=== PATIENT | female | born 1960 | race Asian ===

== ENCOUNTER 2019-06-18 11:15 | Outpatient (RCR) | payer OTHER, SELFPAY ==
--- NOTE | 2019-06-04 17:27 | PT.OIE ---
Current Diagnoses Pain in left knee (06/04/19) Difficulty in walking, not elsewhere classified (06/04/19) Abnormal posture (06/04/19) Weakness (06/04/19) Visit Care Team Role Provider Type MICHAEL Larsen Attending Provider Advanced Banquet Supervisor Primary Care Provider Referring Provider Specialty: EM Address: [address] [place] [address], [id number] Email: Physical Therapy Initial Evaluation PT-OP-A Visit Information Start: 06/03/19 15:01 Freq: Status: Active Protocol: Document 06/04/19 12:06 SP (Rec: 06/04/19 13:59 SP [email or web address]) Out-Patient Physical Therapy Visit Information Visit Information Visit Type Initial Evaluation Visit Start Time 10:37 Visit Stop Time 11:21 Total Visit Minutes 44 Visit Number 1 Number of ELECTRONIC IMAGER Visits 0 PT-OP-B Current Condition Start: 06/03/19 15:01 Freq: Status: Active Protocol: Document 06/04/19 12:06 SP (Rec: 06/04/19 13:59 SP [email or web address]) Current Condition History of Current Condition Onset Date March 2019 Current Complaints left knee pain History of Current Condition Pt, 59yo female, c/o left knee pain that has been going on for a few months however has gotten worse since March when she was walking in the snow. Pt states she did not slip but was aware of having to put more weight through her leg in order to prevent falling in the snow. She denies hearing a click/pop or experiencing any numbess/ tingling. 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 She states that she feels clicking in her left knee when she walks and at times it makes noise. Most of her pain is on the medial side and behind the knee. Pain is worse with stairs, transfers, walking, and standing. Pain decreases with tylenol/aleve, heat, and massage. Pt would like to be able to garden and complete house work without increase of symptoms. Her biggest worry is that she is feeling unsteady and feels like she has to walk slow in order to be safe. She is able to walk ~.5mi prior to feeling like her left knee will give out. PT-OP-C Subjective Start: 06/03/19 15:01 Freq: Status: Active Protocol: Document 06/04/19 12:06 SP (Rec: 06/04/19 13:59 SP [email or web address]) Patient Questionnaires Lower Extremity Functional Scale LEFS Score 74/80 LEFS Impairment 1 to 19% Impaired (Score 63-79 ) PT-OP-F Manual Assessment Start: 06/03/19 15:01 Freq: Status: Active Protocol: Document 06/04/19 12:06 SP (Rec: 06/04/19 17:11 SP [email or web address]) Manual Assessments Joint Mobility Assessment Joint Mobility Assessment L femur ER, L tib IR. R femur ER, R tib ER. PF jt - hypomobile bilaterally PT-OP-G Mobility & Gait Start: 06/03/19 15:01 Freq: Status: Active Protocol: Document 06/04/19 12:06 SP (Rec: 06/04/19 17:09 SP [email or web address]) OP Gait Assessment Comments Gait Comments Pt ambulates with decreased gait speed, mildly flexed knees, B hip ER, R lateral trunk lean, and decreased push off on L. PT-OP-K Range of Motion Start: 06/03/19 15:01 Freq: Status: Active Protocol: Document 06/04/19 12:06 SP (Rec: 06/04/19 13:59 SP [email or web address]) Knee Goniometric Range of Motion Knee Right Patient Position Supine Flexion Active (degrees) 122 Extension Active (degrees) 0 Left Patient Position Supine Flexion Active (degrees) 120 Extension Active (degrees) 0 PT-OP-L Special Tests Start: 06/03/19 15:01 Freq: Status: Active Protocol: Document 06/04/19 12:06 SP (Rec: 06/04/19 13:59 SP [email or web address]) Special Tests Knee Special Tests Varus- 0 Degrees Test Results negative Valgus- 0 Degrees Test Results negative Posterior Draw Test Results negative Kim Test Test Results negative Comments done in sitting Anterior Draw Test Results negative PT-OP-M Strength Start: 06/03/19 15:01 Freq: Status: Active Protocol: Document 06/04/19 12:06 SP (Rec: 06/04/19 13:59 SP [email or web address]) Hip Strength Hip Manual Muscle Testing Right Flexion (L2) 3+ Fair+ Extension (S1) 3+ Fair+ Abduction 4 Good External Rotation 4 Good Internal Rotation 4 Good Left Flexion (L2) 3+ Fair+ Extension (S1) 3+ Fair+ Abduction 4- Good- External Rotation 4 Good Internal Rotation 4 Good Comments mild pn left knee with ER Knee Strength Knee Manual Muscle Testing Right Flexion (S2) 4 Good Extension (L3) 4 Good Left Flexion (S2) 4 Good Extension (L3) 4 Good Comments mild pn posterior knee with flexion Ankle/Foot Strength Ankle and Foot Manual Muscle Testing Right Dorsiflexion (L4) 5 Normal Plantarflexion (S1) 4 Good Comments plantarflexion tested in sitting Left Dorsiflexion (L4) 5 Normal Plantarflexion (S1) 4 Good Comments plantarflexion tested in sitting PT-OP-Q Treatments Start: 06/03/19 15:01 Freq: Status: Active Protocol: Document 06/04/19 12:06 SP (Rec: 06/04/19 13:59 SP [email or web address]) Therapeutic Exercises Supine Exercises ham stretch Side bilateral Equipment Used towel SLR Side bilateral Reps/Minutes 15 PT-OP-T Assessment and Plan Start: 06/03/19 15:01 Freq: Status: Active Protocol: Document 06/04/19 12:06 SP (Rec: 06/04/19 13:59 SP [email or web address]) Physical Therapy Assessment Rehab Potential Rehabilitation Potential Good Evaluation Complexity Number of Personal Factors/Comorbidities 0 Number of Body Systems Impaired 4 or More Clinical Presentation at Evaluation Evolving Impairments Impairments Activity Tolerance,Balance, Functional Activities, Functional Mobility,Gait,Pain, Posture,ROM,Strength Goals Four Impairment Gait Learning Design Specialist Goal (LTG) Pt will demonstrate equal weight bearing and upright posture when ambulating. LTG Duration 8 weeks Three Impairment home exercise program Short Term Goal (STG) Pt will be independent and compliant with HEP. STG Duration 2 weeks Two Impairment Pain Learning Design Specialist Goal (LTG) Pt will have pain <1/10 when standing to be able to fulfill all work duties. LTG Duration 8 weeks One Impairment Strength Assisted Goal (LTG) Pt will have 5/5 BLE strength in order to be able to transfer without increase of symptoms. LTG Duration 8 weeks Assessment Summary Assessment Pt presents to PT with left knee pain medial/posterior > lateral. Pt ambulates with decreased gait speed, mildly flexed knees, B hip ER, and R lateral trunk lean. She also presents with poor postural alignment, decreased hip/knee strength, and hypomobile B patellofemoral jt. She would benefit from skilled PT services in order to improve impairments, be able to fulfill all work duties, and perform all ADLs without increase of symptoms. Physical Therapy Plan Frequency and Duration Frequency of Treatment 2x/Week Duration of Treatment 2 months Plan of Care Start Date 06/04/19 Plan of Care End Date 08/04/19 Therapeutic Interventions Therapeutic Interventions Aquatic Therapy,Balance Training,Gait Training,Home Exercise Program,Joint Mobilizations,Manual Therapy, Neuromuscular Re-education, Orthotic/Prosthetic Management ,Patient/Caregiver Education, Self-Care/Home Management,Soft Tissue Mobilization,Taping, Therapeutic Activities, Therapeutic Exercises Modalities Cold Pack/Ice Massage,Electric Stimulation,Hot Packs, Ultrasound Next Visit Focus/Plan Next Note Type Treatment Note Next Visit Plan Reassess femur/tibia positioning and begin manual tx, assess balance and stairs.
--- NOTE | 2019-06-04 17:27 | PT.OPPOC ---
Addendum entered and electronically signed by Jaida Root, PT 09/19/19 12:07: refax Original Note: Physical, Occupational & Speech Therapy At [facility] Current Diagnoses Pain in left knee (06/04/19) Difficulty in walking, not elsewhere classified (06/04/19) Abnormal posture (06/04/19) Weakness (06/04/19) Visit Care Team Role Provider Type MICHAEL Larsen Attending Provider Advanced Strategy Manager Primary Care Provider Referring Provider Specialty: Address: [address] [place] [address], [id number] Email: Plan Of Care PT-OP-T Assessment and Plan Start: 06/03/19 15:01 Freq: Status: Active Protocol: Document 06/04/19 12:06 SP (Rec: 06/04/19 13:59 SP [email or web address]) Physical Therapy Assessment Rehab Potential Rehabilitation Potential Good Evaluation Complexity Number of Personal Factors/Comorbidities 0 Number of Body Systems Impaired 4 or More Clinical Presentation at Evaluation Evolving Impairments Impairments Activity Tolerance,Balance, Functional Activities, Functional Mobility,Gait,Pain, Posture,ROM,Strength Goals Four Impairment Gait Warehouse Order Selector Goal (LTG) Pt will demonstrate equal weight bearing and upright posture when ambulating. LTG Duration 8 weeks Three Impairment home exercise program Short Term Goal (STG) Pt will be independent and compliant with HEP. STG Duration 2 weeks Two Impairment Pain Warehouse Order Selector Goal (LTG) Pt will have pain <1/10 when standing to be able to fulfill all work duties. LTG Duration 8 weeks One Impairment Strength Warehouse Order Selector Goal (LTG) Pt will have 5/5 BLE strength in order to be able to transfer without increase of symptoms. LTG Duration 8 weeks Assessment Summary Assessment Pt presents to PT with left knee pain medial/posterior > lateral. Pt ambulates with decreased gait speed, mildly flexed knees, B hip ER, and R lateral trunk lean. She also presents with poor postural alignment, decreased hip/knee strength, and hypomobile B patellofemoral jt. She would benefit from skilled PT services in order to improve impairments, be able to fulfill all work duties, and perform all ADLs without increase of symptoms. Physical Therapy Plan Frequency and Duration Frequency of Treatment 2x/Week Duration of Treatment 2 months Plan of Care Start Date 06/04/19 Plan of Care End Date 08/04/19 Therapeutic Interventions Therapeutic Interventions Aquatic Therapy,Balance Training,Gait Training,Home Exercise Program,Joint Mobilizations,Manual Therapy, Neuromuscular Re-education, Orthotic/Prosthetic Management ,Patient/Caregiver Education, Self-Care/Home Management,Soft Tissue Mobilization,Taping, Therapeutic Activities, Therapeutic Exercises Modalities Cold Pack/Ice Massage,Electric Stimulation,Hot Packs, Ultrasound Next Visit Focus/Plan Next Note Type Treatment Note Next Visit Plan Reassess femur/tibia positioning and begin manual tx, assess balance and stairs. Plan of Care Dates Plan of Care Start Date 06/04/19 Plan of Care End Date 08/04/19 Electronically Signed by: Jaida Root, PT 06/04/19 [id number] Please Sign and Return: I have reviewed this Plan of Care and certify that the skilled therapy services above are required to meet the patient?s needs. Physician Signature Date Printed Name and Credentials Clinical Instructor Signature Printed Name and Credentials
--- NOTE | 2019-06-06 17:41 | PT.OTN ---
Current Diagnoses Pain in left knee (06/06/19) Difficulty in walking, not elsewhere classified (06/06/19) Abnormal posture (06/06/19) Weakness (06/06/19) Physical Therapy Treatment Note PT-OP-A Visit Information Start: 06/03/19 15:01 Freq: Status: Active Protocol: Document 06/06/19 13:13 SP (Rec: 06/06/19 13:28 SP [email or web address]) Out-Patient Physical Therapy Visit Information Visit Information Visit Type Treatment Note Visit Start Time 11:17 Visit Stop Time 12:00 Total Visit Minutes 43 Visit Number 2 Number of SEO PROFESSIONAL Visits 0 PT-OP-B Current Condition Start: 06/03/19 15:01 Freq: Status: Active Protocol: Document 06/04/19 12:06 SP (Rec: 06/04/19 13:59 SP [email or web address]) Current Condition History of Current Condition Onset Date March 2019 Current Complaints left knee pain History of Current Condition Pt, 59yo female, c/o left knee pain that has been going on for a few months however has gotten worse since March when she was walking in the snow. Pt states she did not slip but was aware of having to put more weight through her leg in order to prevent falling in the snow. She denies hearing a click/pop or experiencing any numbess/ tingling. 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 She states that she feels clicking in her left knee when she walks and at times it makes noise. Most of her pain is on the medial side and behind the knee. Pain is worse with stairs, transfers, walking, and standing. Pain decreases with tylenol/aleve, heat, and massage. Pt would like to be able to garden and complete house work without increase of symptoms. Her biggest worry is that she is feeling unsteady and feels like she has to walk slow in order to be safe. She is able to walk ~.5mi prior to feeling like her left knee will give out. PT-OP-C Subjective Start: 06/03/19 15:01 Freq: Status: Active Protocol: Document 06/06/19 13:13 SP (Rec: 06/06/19 13:28 SP [email or web address]) OP-PT Subjective Patient Comments Patient Comments Pt reports she is sore today after just finishing up a 7 hour shift. She has been stretching at home and thinks it is helping loosen her muscles up. She still feels unsteady on her feet. PT-OP-F Manual Assessment Start: 06/03/19 15:01 Freq: Status: Active Protocol: Document 06/04/19 12:06 SP (Rec: 06/04/19 17:11 SP [email or web address]) Manual Assessments Joint Mobility Assessment Joint Mobility Assessment L femur ER, L tib IR. R femur ER, R tib ER. PF jt - hypomobile bilaterally PT-OP-G Mobility & Gait Start: 06/03/19 15:01 Freq: Status: Active Protocol: Document 06/04/19 12:06 SP (Rec: 06/04/19 17:09 SP [email or web address]) OP Gait Assessment Comments Gait Comments Pt ambulates with decreased gait speed, mildly flexed knees, B hip ER, R lateral trunk lean, and decreased push off on L. PT-OP-K Range of Motion Start: 06/03/19 15:01 Freq: Status: Active Protocol: Document 06/04/19 12:06 SP (Rec: 06/04/19 13:59 SP [email or web address]) Knee Goniometric Range of Motion Knee Right Patient Position Supine Flexion Active (degrees) 122 Extension Active (degrees) 0 Left Patient Position Supine Flexion Active (degrees) 120 Extension Active (degrees) 0 PT-OP-L Special Tests Start: 06/03/19 15:01 Freq: Status: Active Protocol: Document 06/04/19 12:06 SP (Rec: 06/04/19 13:59 SP [email or web address]) Special Tests Knee Special Tests Varus- 0 Degrees Test Results negative Valgus- 0 Degrees Test Results negative Posterior Draw Test Results negative Kim Test Test Results negative Comments done in sitting Anterior Draw Test Results negative PT-OP-M Strength Start: 06/03/19 15:01 Freq: Status: Active Protocol: Document 06/04/19 12:06 SP (Rec: 06/04/19 13:59 SP [email or web address]) Hip Strength Hip Manual Muscle Testing Right Flexion (L2) 3+ Fair+ Extension (S1) 3+ Fair+ Abduction 4 Good External Rotation 4 Good Internal Rotation 4 Good Left Flexion (L2) 3+ Fair+ Extension (S1) 3+ Fair+ Abduction 4- Good- External Rotation 4 Good Internal Rotation 4 Good Comments mild pn left knee with ER Knee Strength Knee Manual Muscle Testing Right Flexion (S2) 4 Good Extension (L3) 4 Good Left Flexion (S2) 4 Good Extension (L3) 4 Good Comments mild pn posterior knee with flexion Ankle/Foot Strength Ankle and Foot Manual Muscle Testing Right Dorsiflexion (L4) 5 Normal Plantarflexion (S1) 4 Good Comments plantarflexion tested in sitting Left Dorsiflexion (L4) 5 Normal Plantarflexion (S1) 4 Good Comments plantarflexion tested in sitting PT-OP-Q Treatments Start: 06/03/19 15:01 Freq: Status: Active Protocol: Document 06/06/19 13:13 SP (Rec: 06/06/19 13:28 SP [email or web address]) Cardio Equipment Recumbent Stepper (Sci-Fit) Duration (Minutes) 6 Seat Position 4 Therapeutic Exercises Standing Exercises side steps Side bilateral Reps/Minutes 15ftx4 Manual Therapy Treatment Soft Tissue Mobilization L ham, quad, It band Body Location L Mobilization Type Rolling,Strumming,Sustained Pressure Intensity/Depth Moderate Body Position Supine Comments with quad sets Joint Mobilizations PF jt Joint L PF Direction all directions Grade III Body Position Supine L tibiofemoral jt Joint L tibfem Direction distraction Grade IV Body Position Sitting Reps/Duration 30sx4 Comments Pt at edge of mat table with feet off of floor. Apply distraction force at tibfem jt and bring pt to end range ext . Hold at end 30sx4. Manual Techniques ham stretch Body Location L Body Position Supine Neuro Re-Education Treatment Balance Activities 1 Comments 1. feet apart 2. feet together 3. tandem all with head turns, eyes closed PT-OP-T Assessment and Plan Start: 06/03/19 15:01 Freq: Status: Active Protocol: Document 06/06/19 13:13 SP (Rec: 06/06/19 13:28 SP [email or web address]) Physical Therapy Assessment Goals Four Impairment Gait Air Sampling And Monitoring Goal (LTG) Pt will demonstrate equal weight bearing and upright posture when ambulating. LTG Duration 8 weeks Three Impairment home exercise program Short Term Goal (STG) Pt will be independent and compliant with HEP. STG Duration 2 weeks Two Impairment Pain Air Sampling And Monitoring Goal (LTG) Pt will have pain <1/10 when standing to be able to fulfill all work duties. LTG Duration 8 weeks One Impairment Strength Residential Goal (LTG) Pt will have 5/5 BLE strength in order to be able to transfer without increase of symptoms. LTG Duration 8 weeks Assessment Summary Assessment Pt was able to tolerate strengthening and balance exercises well today. Prior to manual, pt ambulated with decreased gait speed and flexed L knee. Following manual, gait speed increased, pt was able to reach full ext, and had less pain. Physical Therapy Plan Frequency and Duration Frequency of Treatment 2x/Week Duration of Treatment 2 months Plan of Care Start Date 06/04/19 Plan of Care End Date 08/04/19 Next Visit Focus/Plan Next Note Type Treatment Note Next Visit Plan Continue with manual to increase jt space at L knee, stretch hamstring, review HEP.
--- NOTE | 2019-06-11 17:58 | PT.OTN ---
Current Diagnoses Pain in left knee (06/11/19) Difficulty in walking, not elsewhere classified (06/11/19) Abnormal posture (06/11/19) Weakness (06/11/19) Physical Therapy Treatment Note PT-OP-A Visit Information Start: 06/03/19 15:01 Freq: Status: Active Protocol: Document 06/11/19 17:00 SP (Rec: 06/11/19 17:15 SP [email or web address]) Out-Patient Physical Therapy Visit Information Visit Information Visit Type Treatment Note Visit Start Time 14:35 Visit Stop Time 15:20 Total Visit Minutes 45 Visit Number 3 Number of GRINDER GEAR Visits 0 PT-OP-B Current Condition Start: 06/03/19 15:01 Freq: Status: Active Protocol: Document 06/04/19 12:06 SP (Rec: 06/04/19 13:59 SP [email or web address]) Current Condition History of Current Condition Onset Date March 2019 Current Complaints left knee pain History of Current Condition Pt, 59yo female, c/o left knee pain that has been going on for a few months however has gotten worse since March when she was walking in the snow. Pt states she did not slip but was aware of having to put more weight through her leg in order to prevent falling in the snow. She denies hearing a click/pop or experiencing any numbess/ tingling. 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 She states that she feels clicking in her left knee when she walks and at times it makes noise. Most of her pain is on the medial side and behind the knee. Pain is worse with stairs, transfers, walking, and standing. Pain decreases with tylenol/aleve, heat, and massage. Pt would like to be able to garden and complete house work without increase of symptoms. Her biggest worry is that she is feeling unsteady and feels like she has to walk slow in order to be safe. She is able to walk ~.5mi prior to feeling like her left knee will give out. PT-OP-C Subjective Start: 06/03/19 15:01 Freq: Status: Active Protocol: Document 06/11/19 17:00 SP (Rec: 06/11/19 17:15 SP [email or web address]) OP-PT Subjective Patient Comments Patient Comments Pt reports her left knee feels sore today. She has been working long hours and has not been doing her HEP as much these last few days. PT-OP-F Manual Assessment Start: 06/03/19 15:01 Freq: Status: Active Protocol: Document 06/04/19 12:06 SP (Rec: 06/04/19 17:11 SP [email or web address]) Manual Assessments Joint Mobility Assessment Joint Mobility Assessment L femur ER, L tib IR. R femur ER, R tib ER. PF jt - hypomobile bilaterally PT-OP-G Mobility & Gait Start: 06/03/19 15:01 Freq: Status: Active Protocol: Document 06/04/19 12:06 SP (Rec: 06/04/19 17:09 SP [email or web address]) OP Gait Assessment Comments Gait Comments Pt ambulates with decreased gait speed, mildly flexed knees, B hip ER, R lateral trunk lean, and decreased push off on L. PT-OP-K Range of Motion Start: 06/03/19 15:01 Freq: Status: Active Protocol: Document 06/04/19 12:06 SP (Rec: 06/04/19 13:59 SP [email or web address]) Knee Goniometric Range of Motion Knee Right Patient Position Supine Flexion Active (degrees) 122 Extension Active (degrees) 0 Left Patient Position Supine Flexion Active (degrees) 120 Extension Active (degrees) 0 PT-OP-L Special Tests Start: 06/03/19 15:01 Freq: Status: Active Protocol: Document 06/04/19 12:06 SP (Rec: 06/04/19 13:59 SP [email or web address]) Special Tests Knee Special Tests Varus- 0 Degrees Test Results negative Valgus- 0 Degrees Test Results negative Posterior Draw Test Results negative Kim Test Test Results negative Comments done in sitting Anterior Draw Test Results negative PT-OP-M Strength Start: 06/03/19 15:01 Freq: Status: Active Protocol: Document 06/04/19 12:06 SP (Rec: 06/04/19 13:59 SP [email or web address]) Hip Strength Hip Manual Muscle Testing Right Flexion (L2) 3+ Fair+ Extension (S1) 3+ Fair+ Abduction 4 Good External Rotation 4 Good Internal Rotation 4 Good Left Flexion (L2) 3+ Fair+ Extension (S1) 3+ Fair+ Abduction 4- Good- External Rotation 4 Good Internal Rotation 4 Good Comments mild pn left knee with ER Knee Strength Knee Manual Muscle Testing Right Flexion (S2) 4 Good Extension (L3) 4 Good Left Flexion (S2) 4 Good Extension (L3) 4 Good Comments mild pn posterior knee with flexion Ankle/Foot Strength Ankle and Foot Manual Muscle Testing Right Dorsiflexion (L4) 5 Normal Plantarflexion (S1) 4 Good Comments plantarflexion tested in sitting Left Dorsiflexion (L4) 5 Normal Plantarflexion (S1) 4 Good Comments plantarflexion tested in sitting PT-OP-Q Treatments Start: 06/03/19 15:01 Freq: Status: Active Protocol: Document 06/11/19 17:00 SP (Rec: 06/11/19 17:15 SP [email or web address]) Cardio Equipment Recumbent Stepper (Sci-Fit) Duration (Minutes) 6 Seat Position 4 Therapeutic Exercises Supine Exercises SLR Side left Reps/Minutes 20 Standing Exercises hamstring curls Side left Resistance 2# hamstring stretch Side left Equipment Used step mini squats Reps/Minutes 20 Manual Therapy Treatment Soft Tissue Mobilization L ham, quad, It band Body Location L Mobilization Type Rolling,Strumming,Sustained Pressure Intensity/Depth Moderate Body Position Supine Comments with quad sets Joint Mobilizations L tibiofemoral jt Joint L tibfem Direction distraction Grade IV Body Position Sitting Reps/Duration [id number] Manual Techniques quad stretch Body Location L Body Position Prone ham stretch Body Location L Body Position Supine PT-OP-T Assessment and Plan Start: 06/03/19 15:01 Freq: Status: Active Protocol: Document 06/11/19 17:00 SP (Rec: 06/11/19 17:15 SP [email or web address]) Physical Therapy Assessment Goals Four Impairment Gait Model Maker Apprentice Goal (LTG) Pt will demonstrate equal weight bearing and upright posture when ambulating. LTG Duration 8 weeks Three Impairment home exercise program Short Term Goal (STG) Pt will be independent and compliant with HEP. STG Duration 2 weeks Two Impairment Pain Model Maker Apprentice Goal (LTG) Pt will have pain <1/10 when standing to be able to fulfill all work duties. LTG Duration 8 weeks One Impairment Strength [facility] Goal (LTG) Pt will have 5/5 BLE strength in order to be able to transfer without increase of symptoms. LTG Duration 8 weeks Assessment Summary Assessment Pt needed mod cueing during squats to sit back and avoid going knees over toes. Pt swelling at L medial jt line decreased since last visit. She continues to have tightness at L quad and hamstring however improved following manual. Pt instructed to increase hamstring stretch and to complete it two different ways . Physical Therapy Plan Frequency and Duration Frequency of Treatment 2x/Week Duration of Treatment 2 months Plan of Care Start Date 06/04/19 Plan of Care End Date 08/04/19 Next Visit Focus/Plan Next Note Type Treatment Note Next Visit Plan Reassess hamstring and quad tightness, progress balance activities.
--- NOTE | 2019-06-13 16:27 | PT.OTN ---
Current Diagnoses Pain in left knee (06/13/19) Difficulty in walking, not elsewhere classified (06/13/19) Abnormal posture (06/13/19) Weakness (06/13/19) Physical Therapy Treatment Note PT-OP-A Visit Information Start: 06/03/19 15:01 Freq: Status: Active Protocol: Document 06/13/19 14:21 SP (Rec: 06/13/19 14:27 SP [email or web address]) Out-Patient Physical Therapy Visit Information Visit Information Visit Type Treatment Note Visit Start Time 13:30 Visit Stop Time 14:17 Total Visit Minutes 47 Visit Number 4 Number of LAMINATED PLASTICS ASSEMBLER AND GLUER Visits 0 PT-OP-B Current Condition Start: 06/03/19 15:01 Freq: Status: Active Protocol: Document 06/04/19 12:06 SP (Rec: 06/04/19 13:59 SP [email or web address]) Current Condition History of Current Condition Onset Date March 2019 Current Complaints left knee pain History of Current Condition Pt, 59yo female, c/o left knee pain that has been going on for a few months however has gotten worse since March when she was walking in the snow. Pt states she did not slip but was aware of having to put more weight through her leg in order to prevent falling in the snow. She denies hearing a click/pop or experiencing any numbess/ tingling. 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 She states that she feels clicking in her left knee when she walks and at times it makes noise. Most of her pain is on the medial side and behind the knee. Pain is worse with stairs, transfers, walking, and standing. Pain decreases with tylenol/aleve, heat, and massage. Pt would like to be able to garden and complete house work without increase of symptoms. Her biggest worry is that she is feeling unsteady and feels like she has to walk slow in order to be safe. She is able to walk ~.5mi prior to feeling like her left knee will give out. PT-OP-C Subjective Start: 06/03/19 15:01 Freq: Status: Active Protocol: Document 06/13/19 14:21 SP (Rec: 06/13/19 14:27 SP [email or web address]) OP-PT Subjective Patient Comments Patient Comments Pt reports her left knee feels much better today. She states that doing her exercises helps lower her pain. PT-OP-F Manual Assessment Start: 06/03/19 15:01 Freq: Status: Active Protocol: Document 06/04/19 12:06 SP (Rec: 06/04/19 17:11 SP [email or web address]) Manual Assessments Joint Mobility Assessment Joint Mobility Assessment L femur ER, L tib IR. R femur ER, R tib ER. PF jt - hypomobile bilaterally PT-OP-G Mobility & Gait Start: 06/03/19 15:01 Freq: Status: Active Protocol: Document 06/04/19 12:06 SP (Rec: 06/04/19 17:09 SP [email or web address]) OP Gait Assessment Comments Gait Comments Pt ambulates with decreased gait speed, mildly flexed knees, B hip ER, R lateral trunk lean, and decreased push off on L. PT-OP-K Range of Motion Start: 06/03/19 15:01 Freq: Status: Active Protocol: Document 06/04/19 12:06 SP (Rec: 06/04/19 13:59 SP [email or web address]) Knee Goniometric Range of Motion Knee Right Patient Position Supine Flexion Active (degrees) 122 Extension Active (degrees) 0 Left Patient Position Supine Flexion Active (degrees) 120 Extension Active (degrees) 0 PT-OP-L Special Tests Start: 06/03/19 15:01 Freq: Status: Active Protocol: Document 06/04/19 12:06 SP (Rec: 06/04/19 13:59 SP [email or web address]) Special Tests Knee Special Tests Varus- 0 Degrees Test Results negative Valgus- 0 Degrees Test Results negative Posterior Draw Test Results negative Kim Test Test Results negative Comments done in sitting Anterior Draw Test Results negative PT-OP-M Strength Start: 06/03/19 15:01 Freq: Status: Active Protocol: Document 06/04/19 12:06 SP (Rec: 06/04/19 13:59 SP [email or web address]) Hip Strength Hip Manual Muscle Testing Right Flexion (L2) 3+ Fair+ Extension (S1) 3+ Fair+ Abduction 4 Good External Rotation 4 Good Internal Rotation 4 Good Left Flexion (L2) 3+ Fair+ Extension (S1) 3+ Fair+ Abduction 4- Good- External Rotation 4 Good Internal Rotation 4 Good Comments mild pn left knee with ER Knee Strength Knee Manual Muscle Testing Right Flexion (S2) 4 Good Extension (L3) 4 Good Left Flexion (S2) 4 Good Extension (L3) 4 Good Comments mild pn posterior knee with flexion Ankle/Foot Strength Ankle and Foot Manual Muscle Testing Right Dorsiflexion (L4) 5 Normal Plantarflexion (S1) 4 Good Comments plantarflexion tested in sitting Left Dorsiflexion (L4) 5 Normal Plantarflexion (S1) 4 Good Comments plantarflexion tested in sitting PT-OP-Q Treatments Start: 06/03/19 15:01 Freq: Status: Active Protocol: Document 06/13/19 14:21 SP (Rec: 06/13/19 14:27 SP [email or web address]) Cardio Equipment Recumbent Stepper (Sci-Fit) Duration (Minutes) 6 Seat Position 4 Therapeutic Exercises Supine Exercises bridge Reps/Minutes 20 Comments facilitate at pelvis to increase hip ext. quad set Side bilateral Reps/Minutes 30 SLR Side bilateral Reps/Minutes 30 Manual Therapy Treatment Soft Tissue Mobilization L ham, quad, It band Body Location L Mobilization Type Rolling,Strumming,Sustained Pressure Intensity/Depth Moderate Body Position Supine Comments with quad sets Manual Techniques ham stretch Body Location L Body Position Supine Neuro Re-Education Treatment Balance Activities rockerboard Comments 1. weightshift 2. keep board in place tpads Comments feet staggered head turns, alternating arms, EC. PT-OP-T Assessment and Plan Start: 06/03/19 15:01 Freq: Status: Active Protocol: Document 06/13/19 14:21 SP (Rec: 06/13/19 14:27 SP [email or web address]) Physical Therapy Assessment Goals Four Impairment Gait Long-Term Goal (LTG) Pt will demonstrate equal weight bearing and upright posture when ambulating. LTG Duration 8 weeks Three Impairment home exercise program Short Term Goal (STG) Pt will be independent and compliant with HEP. STG Duration 2 weeks Two Impairment Pain Long-Term Goal (LTG) Pt will have pain <1/10 when standing to be able to fulfill all work duties. LTG Duration 8 weeks One Impairment Strength Long-Term Goal (LTG) Pt will have 5/5 BLE strength in order to be able to transfer without increase of symptoms. LTG Duration 8 weeks Assessment Summary Assessment Pt able to complete all exercises without increase of L knee pain. Pt able to complete balance activities without sway. Mild L hamstring tightness noted, however improvement from last visit. Pt ambulates with improved gait pattern; increased gait speed and better push-off. She continues to have difficulty accepting full weight on LLE during midstance. Physical Therapy Plan Frequency and Duration Frequency of Treatment 2x/Week Duration of Treatment 2 months Plan of Care Start Date 06/04/19 Plan of Care End Date 08/04/19 Next Visit Focus/Plan Next Note Type Treatment Note Next Visit Plan progress quad/hamstring strengthening, begin PNF for LE.
--- NOTE | 2019-06-18 15:13 | PT.OTN ---
Current Diagnoses Pain in left knee (06/18/19) Difficulty in walking, not elsewhere classified (06/18/19) Abnormal posture (06/18/19) Weakness (06/18/19) Physical Therapy Treatment Note PT-OP-A Visit Information Start: 06/03/19 15:01 Freq: Status: Active Protocol: Document 06/18/19 15:07 [facility] (Rec: 06/18/19 15:13 [facility] [email or web address]) Out-Patient Physical Therapy Visit Information Visit Information Visit Type Treatment Note Visit Start Time 11:22 Visit Stop Time 12:15 Total Visit Minutes 53 Visit Number 5 Number of BUTTON SPINDLER Visits 0 PT-OP-B Current Condition Start: 06/03/19 15:01 Freq: Status: Active Protocol: Document 06/04/19 12:06 SP (Rec: 06/04/19 13:59 SP [email or web address]) Current Condition History of Current Condition Onset Date March 2019 Current Complaints left knee pain History of Current Condition Pt, 59yo female, c/o left knee pain that has been going on for a few months however has gotten worse since March when she was walking in the snow. Pt states she did not slip but was aware of having to put more weight through her leg in order to prevent falling in the snow. She denies hearing a click/pop or experiencing any numbess/ tingling. 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 She states that she feels clicking in her left knee when she walks and at times it makes noise. Most of her pain is on the medial side and behind the knee. Pain is worse with stairs, transfers, walking, and standing. Pain decreases with tylenol/aleve, heat, and massage. Pt would like to be able to garden and complete house work without increase of symptoms. Her biggest worry is that she is feeling unsteady and feels like she has to walk slow in order to be safe. She is able to walk ~.5mi prior to feeling like her left knee will give out. PT-OP-C Subjective Start: 06/03/19 15:01 Freq: Status: Active Protocol: Document 06/18/19 15:07 [facility] (Rec: 06/18/19 15:13 [facility] [email or web address]) OP-PT Subjective Patient Comments Patient Comments Pt reports she does well until she has to go to work and work hurts her. PT-OP-F Manual Assessment Start: 06/03/19 15:01 Freq: Status: Active Protocol: Document 06/04/19 12:06 SP (Rec: 06/04/19 17:11 SP [email or web address]) Manual Assessments Joint Mobility Assessment Joint Mobility Assessment L femur ER, L tib IR. R femur ER, R tib ER. PF jt - hypomobile bilaterally PT-OP-G Mobility & Gait Start: 06/03/19 15:01 Freq: Status: Active Protocol: Document 06/04/19 12:06 SP (Rec: 06/04/19 17:09 SP [email or web address]) OP Gait Assessment Comments Gait Comments Pt ambulates with decreased gait speed, mildly flexed knees, B hip ER, R lateral trunk lean, and decreased push off on L. PT-OP-K Range of Motion Start: 06/03/19 15:01 Freq: Status: Active Protocol: Document 06/04/19 12:06 SP (Rec: 06/04/19 13:59 SP [email or web address]) Knee Goniometric Range of Motion Knee Right Patient Position Supine Flexion Active (degrees) 122 Extension Active (degrees) 0 Left Patient Position Supine Flexion Active (degrees) 120 Extension Active (degrees) 0 PT-OP-L Special Tests Start: 06/03/19 15:01 Freq: Status: Active Protocol: Document 06/04/19 12:06 SP (Rec: 06/04/19 13:59 SP [email or web address]) Special Tests Knee Special Tests Varus- 0 Degrees Test Results negative Valgus- 0 Degrees Test Results negative Posterior Draw Test Results negative Kim Test Test Results negative Comments done in sitting Anterior Draw Test Results negative PT-OP-M Strength Start: 06/03/19 15:01 Freq: Status: Active Protocol: Document 06/04/19 12:06 SP (Rec: 06/04/19 13:59 SP [email or web address]) Hip Strength Hip Manual Muscle Testing Right Flexion (L2) 3+ Fair+ Extension (S1) 3+ Fair+ Abduction 4 Good External Rotation 4 Good Internal Rotation 4 Good Left Flexion (L2) 3+ Fair+ Extension (S1) 3+ Fair+ Abduction 4- Good- External Rotation 4 Good Internal Rotation 4 Good Comments mild pn left knee with ER Knee Strength Knee Manual Muscle Testing Right Flexion (S2) 4 Good Extension (L3) 4 Good Left Flexion (S2) 4 Good Extension (L3) 4 Good Comments mild pn posterior knee with flexion Ankle/Foot Strength Ankle and Foot Manual Muscle Testing Right Dorsiflexion (L4) 5 Normal Plantarflexion (S1) 4 Good Comments plantarflexion tested in sitting Left Dorsiflexion (L4) 5 Normal Plantarflexion (S1) 4 Good Comments plantarflexion tested in sitting PT-OP-Q Treatments Start: 06/03/19 15:01 Freq: Status: Active Protocol: Document 06/18/19 15:07 [facility] (Rec: 06/18/19 15:13 [facility] [email or web address]) Cardio Equipment Recumbent Elliptical (Biodex) Duration (Minutes) 7 Resistance 5 Therapeutic Exercises Supine Exercises bridge Reps/Minutes 12 Comments facilitate at pelvis to increase hip ext. quad set Side bilateral Reps/Minutes 15 ham stretch Side bilateral Equipment Used towel Reps/Minutes [id number] SLR Side bilateral Reps/Minutes 5 Prone Exercises hip ext Side bilateral Reps/Minutes 15 Sidelying Exercises hip abd Side left Reps/Minutes 15 Standing Exercises hip ext Side bilateral Equipment Used L1 Reps/Minutes 15 hip abd Side bilateral Equipment Used lvl 1 Reps/Minutes 15 hamstring curls Side left Reps/Minutes 5 hamstring stretch Side left Equipment Used step & ground Reps/Minutes 30 sec ea mini squats Reps/Minutes 5 stopped d/t pain Manual Therapy Treatment Soft Tissue Mobilization L thigh Body Location circumfrential mob w/quad set Joint Mobilizations PF jt Joint L PF Direction med, sup, inf Grade III Body Position Supine Taping KT Body Location for med knee swelling 2 5 finger strips Type of Tape Kinesio Tape Self-Care/Home Management Treatment Education Patient Education Home Exercise Program,Posture PT-OP-T Assessment and Plan Start: 06/03/19 15:01 Freq: Status: Active Protocol: Document 06/18/19 15:07 [facility] (Rec: 06/18/19 15:13 [facility] [email or web address]) Physical Therapy Assessment Goals Four Impairment Gait [facility] Goal (LTG) Pt will demonstrate equal weight bearing and upright posture when ambulating. LTG Duration 8 weeks Three Impairment home exercise program Short Term Goal (STG) Pt will be independent and compliant with HEP. STG Duration 2 weeks Two Impairment Pain [facility] Goal (LTG) Pt will have pain <1/10 when standing to be able to fulfill all work duties. LTG Duration 8 weeks One Impairment Strength [facility] Goal (LTG) Pt will have 5/5 BLE strength in order to be able to transfer without increase of symptoms. LTG Duration 8 weeks Assessment Summary Assessment Focus on HEP and pt was able to perform all exercises with cueing throughout for form. She was edcuated on knee and foot posture for standing and avoiding lockng knees. Pt had improved quad set and no pain w/full knee ext w/HS/calf stretch after manual. Physical Therapy Plan Frequency and Duration Frequency of Treatment 2x/Week Duration of Treatment 2 months Plan of Care Start Date 06/04/19 Plan of Care End Date 08/04/19 Next Visit Focus/Plan Next Note Type Treatment Note Next Visit Plan progress quad/hamstring strengthening, begin PNF for LE.
--- NOTE | 2019-07-23 13:28 | PT-OP ANOTE ---
Pt called re: starting to schedule appointments again and informed will be following CDC guidelines with dec therapists present in clinic, masks worn, cleaning and hand washing. Educated that they are not required to attend and it this pt choice re: attending. Pt left message re: this and will be called to schedule later with options given.
== END 2019-08-12 08:25 ==
LOC: PHYS 11:15
PROVIDERS: PCP Nurse Practitioner; Referring Provider Nurse Practitioner; Visit Provider Nurse Practitioner
DX: M25.562 Pain in left knee (principal); R53.1 Weakness; R29.3 Abnormal posture; R26.2 Difficulty in walking, not elsewhere classified
CPT/HCPCS: 97110; 97140; 97161